=== PATIENT | female | born 1960 | race Caucasian/White ===

== ENCOUNTER 2019-04-05 19:53 | Emergency (ER) | payer BC ==
[2019-04-05] MEDS ORDERED: Nitrofurantoin Monohydrate/Macrocrystalline 100 MG Cap PO ONE (19:54)
--- NOTE | 2019-04-05 21:17 | EDM.PDOC ---
ED HPI GENERAL MEDICAL PROBLEM - General Chief Complaint: Genitourinary Problem Stated Complaint: BLADDER INFECTION Time Seen by Provider: 04/05/19 21:14 Source of Information: Reports: Patient History Limitations: Reports: No Limitations - History of Present Illness INITIAL COMMENTS - FREE TEXT/NARRATIVE: Urinary frequency,urgency and pressure x 12 hrs. Sudden onset. No abdominal pain and does not endorse hematuria ED ROS GENERAL - Review of Systems Review Of Systems: Comprehensive ROS is negative, except as noted in HPI. ED EXAM, RENAL/ - Physical Exam Exam: See Below Exam Limited By: No Limitations General Appearance: Alert, WD/WN Throat/Mouth: Normal Inspection Head: Atraumatic Course - Orders/Labs/Meds Labs: Laboratory Tests 04/05/19 Range/Units 20:10 Urine Color Yellow (YELLOW) Urine Appearance Clear (CLEAR) Urine pH 6.0 (5.0-6.5) Ur Specific [place] 1.005 L (1.010-1.025) Urine Protein Negative (NEGATIVE) mg/dL Urine Glucose (UA) Normal (NORMAL) mg/dL Urine Ketones Negative (NEGATIVE) mg/dL Urine Occult Blood Negative (NEGATIVE) Urine Nitrite Negative (NEGATIVE) Urine Bilirubin Negative (NEGATIVE) Urine Urobilinogen Normal (NEGATIVE) mg/dL Ur Leukocyte Esterase Small H (NEGATIVE) Urine RBC 0-5 (0-5) Urine WBC 0-5 (0-5) Ur Squamous Epith Cells Rare (NS,R,O) Urine Bacteria Rare H (NS) Departure - Departure Time of Disposition: 21:15 Disposition: Home, Self-Care 01 Condition: Good Clinical Impression: Dysuria - Discharge Information Referrals: PCP,Not In Area [Primary Care Provider] - Forms: ED Department Discharge - Problem List & Annotations (1) Dysuria SNOMED Code(s): 61085299 Code(s): R30.0 - DYSURIA Status: Acute Current Visit: Yes - Problem List Review Problem List Initiated/Reviewed/Updated: Yes - Assessment/Plan Assessment:: Even though her UA is negative,her sympptoms are significant and convincing. I will treat empirically- Macrobi 1 bid x 5 days. Return to ED with worsening symptoms
== END 2019-04-05 21:55 | disposition home or self-care (01) ==
LOC: FB.ED 19:53
DX: R30.0 Dysuria (principal)
CPT/HCPCS: 81001; 99283; A9270